=== PATIENT | male | born 1965 | race Two or more races ===

== ENCOUNTER 2024-07-13 07:53 | Outpatient (AMB) | payer OTHER, SELFPAY ==
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
[2024-07-13 08:24] VITALS: BMI 26.7
== END 2024-07-13 08:54 | disposition home or self-care (01) ==
LOC: HO.HOS 07:54
PROVIDERS: PCP Internal Medicine; Visit Provider Physician Assistant
DX: S46.002A Unspecified injury of muscle(s) and tendon(s) of the rotator cuff of left shoulder, initial encounter (principal)
CPT/HCPCS: 20610; 99204

== ENCOUNTER → 2024-07-13 07:56 | Outpatient (BNV) | payer OTHER, SELFPAY | PROVIDERS: Visit Provider Radiology Diagnostic Radiology | DX: M25.512 Pain in left shoulder (principal) | CPT/HCPCS: 73030 ==

== ENCOUNTER 2024-07-13 08:24 | Outpatient (REF) | payer OTHER, SELFPAY ==
--- NOTE | ~2024-07-13 | XR_ITS ---
EXAMINATION: XR SHOULDER 2 OR MORE VIEWS LEFT HISTORY: M25.519 - Pain in unspecified shoulder COMPARISON: There are no prior studies available for comparison. FINDINGS: Three views of the left shoulder are submitted. Osseous mineralization is normal. There is no fracture or dislocation. The glenohumeral joint is maintained. There is mild narrowing of the AC joint. The soft tissues are unremarkable. XR/XR shoulder LT min 2V IMPRESSION: Mild narrowing of the AC joint. Electronically signed by: Abisai Reina MD 07/13/2024 02:52 PM EDT
== END 2024-07-13 08:25 | disposition home or self-care (01) ==
LOC: HO.HOSX 08:24
PROVIDERS: Visit Provider Physician Assistant
DX: M25.512 Pain in left shoulder (principal); M75.102 Unspecified rotator cuff tear or rupture of left shoulder, not specified as traumatic; S46.002A Unspecified injury of muscle(s) and tendon(s) of the rotator cuff of left shoulder, initial encounter
CPT/HCPCS: 20610; 73030; J1010; J2003

== ENCOUNTER → 2024-07-27 17:45 | Outpatient (BNV) | payer OTHER, SELFPAY | PROVIDERS: PCP Nurse Practitioner Family; Visit Provider Radiology Diagnostic Radiology | DX: M75.122 Complete rotator cuff tear or rupture of left shoulder, not specified as traumatic (principal); M25.712 Osteophyte, left shoulder | CPT/HCPCS: 73221 ==

== ENCOUNTER 2024-07-27 17:46 | Outpatient (REF) | payer OTHER, SELFPAY ==
--- NOTE | ~2024-07-27 | MR_ITS ---
EXAMINATION: MR SHOULDER, LEFT CLINICAL INFORMATION: Pain with limited range of motion x6 months. No relief with PT. COMPARISON: None TECHNIQUE: Multiplanar multisequence MR imaging of the left shoulder was done without IV contrast. Examination performed on a 1.5 Serenity Siemens unit utilizing standard sequences. FINDINGS: Rotator Cuff and Biceps Tendon: Supraspinatus: There is a partial approximately 50% undersurface tear of the mid tendon measuring approximately 7 mm in transverse, by 5 mm in AP diameter (series 8, image 12; series 9, image 20). There is associated mild undersurface fraying of the mid fibers of the tendon with associated signal increase is consistent with tendinopathy. No complete tear or tendinous retraction. Normal muscle belly. Infraspinatus: Focal full-thickness tear of the anterior most tendon within the critical zone, measuring approximately 9 mm in transverse, by 4 mm in AP diameter (series 8, image 13; series 9, image 22). There is likely associated undersurface fraying of the tendon. There is associated increased signal of the distal tendon consistent with tendinopathy. No complete tear or tendinous retraction. Normal muscle belly. Subscapularis: Grossly intact, normal in signal, without evidence of tear. Normal muscle belly. Teres Minor: Appears intact and normal in signal. Normal muscle belly. Biceps Long Head: Normally located within the bicipital groove. There is mildly increased fluid in the tendon sheath. Tendon within the rotator interval appears normal. The anchor appears intact. AC Joint and Acromiohumeral Arch: There is moderate degenerative arthritis in the AC joint with joint capsular distention, predominantly superior surface spurring and small undersurface spurs, and mild periarticular edema. There is no significant supraspinatus outlet stenosis. There is a type I acromion without undersurface spurring. There is no loss of the subacromial space. Glenohumeral Joint and Labrum: Very mild degenerative arthritis of the glenohumeral joint with tiny undersurface spurs. No full-thickness cartilaginous defects or subchondral bone plate edema. Normal joint fluid. Irregular linear T2 signal in the superior labrum suggesting of superior labral tear. Remainder of the glenoid labrum appears intact. Osseous Structures: No additional abnormal signal or edema. No infiltrating abnormal signal. Spino-glenoid Notch: Normal. Quadrilateral Space: Normal. Other: The glenohumeral ligaments appear intact and grossly normal. No thickening. Moderate fluid in the subacromial/subdeltoid bursa, nonspecific in the setting of full-thickness rotator cuff tear. MR/MR shoulder LT wo con IMPRESSION: 1. Partial approximately 50% undersurface tear of the mid supraspinatus tendon. No full-thickness tear or tendinous retraction. 2. There is a full-thickness tear of the most anterior infraspinatus tendon with focal fluid gap. There is likely undersurface fraying of the majority of the tendon. No tendinous retraction. 3. Intact teres minor and intact subscapularis tendons. 4. Suspect superior labral tearing. 5. Minimal degenerative arthritis in the glenohumeral joint, and moderate spurring, predominantly superior surface, of the AC joint. Electronically signed by: Ronald Lopez MD 07/28/2024 01:39 PM EDT
--- OUTSIDE RECORDS SUMMARY | 2024-07-27 18:56 | XMS_ITS | Clinical Summary ---
Author Organization [facility] Address [address] [place] [address] Phone Care Team Providers Care Asbestos Shingle Roofer Name Role Phone Taylor Dseouza NP Primary Care Provider [phone] Allergies Active Allergy Reactions Criticality Noted Date Comments Atorvastatin Unknown 04/04/2024 Medications methocarbamoL (ROBAXIN) 750 mg tablet Take 1 tablet (750 mg total) by mouth 2 (two) times a day for 10 days. 20 each 04/04/2024 Active Surgical History Surgery Date Site/Laterality Comments BACK SURGERY Medical History Medical History Date Comments Hypertension Hyperlipidemia Social History Tobacco Use Types Packs/Day Years Used Date Smoking Tobacco: Never Smokeless Tobacco: Never Tobacco Cessation:Counseling Given: Not Answered Sex and Gender Information Value Date Recorded Sex Assigned at Male 04/04/2024 3:54 PM EST Legal Sex Male 2:44 PM EST Gender Identity Male 04/04/2024 3:54 PM EST Sexual Orientation Choose not to disclose 2023 3:54 PM EST Obstetrics History Last Filed Vital Signs Vital Sign Reading Time Taken Comments Blood Pressure 130/75 04/04/2024 2:54 PM EST Pulse 50 04/04/2024 2:54 PM EST Temperature 36.3 ??C (97.4 ??F) 04/04/2024 2:54 PM ES T Respiratory Rate 16 04/04/2024 2:54 PM EST Oxygen Saturation 100% 04/04/2024 2:54 PM EST Inhaled Oxygen Concentration - - Weight 82.6 kg (182 lb) 04/04/2024 2:54 PM EST Height 175.3 cm (5' 9 ) 04/04/2024 2:54 PM EST Body Mass Index 26.88 04/04/2024 2:54 PM EST Plan of Treatment Health Maintenance Due Date Last Done Comments Diabetes: Annual GFR (Glomerular Filtration Rate) 1964 Diabetes: Annual Foot Exam 02/20/1974 Diabetes: Annual Retina Eye Exam 02/20/1974 Hepatitis A Vaccines (1 of 2 - Risk 2-dose series) 02/20/1983 Pneumococcal Vaccine: 50+ Years (2 of 2 - PCV) 12/16/2015 12/15/2014 Zoster Vaccines (2 of 2) 05/15/2018 03/20/2018 COVID-19 Vaccine ( season) 2023 01/25/2023, 08/09/2021, 03/24/2021, Additional history exists Hepatitis B Vaccines (1 of 3 - Risk 3-dose series) 2024 RSV Immunization Adult Patients (1 - Risk 60-74 years 1-dose series) 2024 Cholesterol Screening (Lipid Panel) 04/04/2024 Colorectal Cancer Screening: Colonoscopy 04/04/2024 Depression Screening 04/04/2024 Diabetes: Annual Urine Albumin-Creatinine Ratio (uACR) 04/04/2024 HIV Screening 04/04/2024 Hepatitis C Screening 04/04/2024 Hypertension/CHF/CAD Annual BMP Blood Test 04/04/2024 Social Influencers of Health Screening 04/04/2024 Diabetes: Blood Sugar Control Test (HGBA1C) 05/01/2024 10/30/2023, 10/30/2023 DTaP,Tdap,and Td Vaccines (3 - Td or Tdap) 05/13/2031 05/13/2021, 06/07/2010 Pneumococcal Vaccine: Pediatrics (0 to 5 Years) and At-Risk Patients (6 to 64 Years) Aged Out 12/15/2014 No longer eligible based on patient's age to complete this topic Influenza Vaccine Completed 02/18/2024, , 03/02/2022, Additional history exists HIB Vaccines Aged Out No longer eligi ble based on patient's age to complete this topic HPV Vaccines Aged Out No longer eligi ble based on patient's age to complete this topic IPV Vaccines Aged Out No longer eligi ble based on patient's age to complete this topic MMR Vaccines Aged Out No longer eligi ble based on patient's age to complete this topic Meningococcal ACWY Vaccine Aged Out N o longer eligible based on patient's age to complete this topic Meningococcal B Vaccine Aged Out No l onger eligible based on patient's age to complete this topic RSV Immunization Patients Under 20 months Aged Out No longer eligible based on patient's age to complete this topic Varicella Vaccines Aged Out No longer eligible based on patient's age to complete this topic Insurance [employer] Care Teams Asbestos Shingle Roofer Relationship Specialty Start Date End Date Taylor Desouza NP [facility] [address] [place] [address] [phone] PCP - General Nurse Practitioner 04/04/24
--- OUTSIDE RECORDS SUMMARY | 2024-07-27 18:56 | XMS_ITS | Encounter Summary ---
Author Organization [facility] Address [address] [place] [address] Phone Care Team Providers Care Veneer Redrier Name Role Phone Taylor Desouza REGRINDER OPERATOR Primary Care Provider + Reason for Visit * Reason Comments Med Refill Encounter Details Date Type Department Care Team (Late st Contact Info) Description 06/08/2022 Refill [facility] [address] [address] Zaheer Nicolas DO [address] [place] [address] Social History Tobacco Use Types Packs/Day Years Used Date Smoking Tobacco: Never Alcohol Use Standard Drinks/Week Comments Yes 0 (1 standard drink = 0.6 oz pure alcohol) Alcoholic Drinks/day: Occasional social drink Sex and Gender Information Value Date Recorded Sex Assigned at Male 05/10/2023 4:06 PM EST Legal Sex Male 4:31 PM EST Gender Identity Male 05/10/2023 4:06 PM EST Sexual Orientation Not on file documented as of this encounter Plan of Treatment Upcoming Encounters Date Type Department Care Team (Late st Contact Info) Description 10/16/2024 1:30 PM EDT Office Visit [facility] [address] [address] Zaheer Nicolas DO [address] [facility] [address] [facility] [place] [address] documented as of this encounter Visit Diagnoses Not on filedocumented in this encounter Care Teams Veneer Redrier Relationship Specialty Start Date End Date Taylor Desouza NP [address] [place] [phone] PCP - General Nurse Practitioner 08/12/20 documented as of this encounter
--- OUTSIDE RECORDS SUMMARY | 2024-07-27 18:56 | XMS_ITS | Encounter Summary ---
Author Organization [facility] Address [address] [place] [address] Phone Care Team Providers Care Psych Rn Name Role Phone Taylor Desouza SPACE AND MISSILE OPERATIONS Primary Care Provider + Encounter Details Date Type Department Care Team (Late st Contact Info) Description 04/18/2023 Documentation Only [facility] [address] [place] [address] Zaheer Nicolas DO [address] [place] [address] Social History Tobacco Use Types [...] Visit [facility] [address] [place] [address] Zaheer Nicolas DO [address] [place] [address] documented as of this encounter Visit Diagnoses Not on filedocumented in this encounter Care Teams Psych Rn Relationship Specialty Start Date End Date Taylor Desouza NP [address] [place] [phone] PCP - General Nurse Practitioner 08/12/20 documented as of this encounter
--- OUTSIDE RECORDS SUMMARY | 2024-07-27 18:56 | XMS_ITS | Continuity of Care Document ---
Author Organization [facility] Address [address] [place] [address] Phone Care Team Providers Care Piece Meat Trimmer Name Role Phone Damir Orellana MD Unavailable [...] Providers Copied on Encounter [facility], [address], [place], [place], [id number], [place] tel:[phone] [facility] Main No Information 4 Reyna Reich. [address], [place], [place], [id number], [place]. tel:[phone] OFFICE/OUTPA TIENT VISIT, [facility], Critical access [facility] [address], [place], [place], [id number], tel:[phone] [facility] Main [facility] (chief complaint) Cardiovasc ular Review (chief complaint) Body mass index [BMI] 27.0-27.9, adultHistory of MD (myocardial infarction)MOSLEY (dyspnea on exertion)Curre nt smokerCurrent use of aspirin 3 Tish Gloria. [address], [place], [place], [id number]. tel:[phone] Referring Provider: Bryce Sahni, [facility] [address], [place], [address] . tel:[phone] [facility], Critical access hospital [address] [address], [place], [place], [id number], [place] tel:[phone] [facility] [place] IP No Information 3 Fred Moya. [facility] [address], [place], [place], [id number], [place]. tel:[phone] Referring Provider: Edy Fisher, [address] [place] [address] [address], [place], [address]. tel:[phone] [facility], Critical access [facility] [address], [place], [place], [id number], [place] tel:[phone] Dario [place] IP No Information 3 Fred Moya. [facility] [facility] [address], [place], [place], [address], . tel:[phone] Referring Provider: Edy Fisher, [address] [place] [address] [address], [place], [address]. tel:[phone] [facility], [address], [place], [place], [address], [place] tel:[phone] Dario Soha [place] IP No Information 3 Fred Moya. [address], [place], [place], [address], [place]. tel:[phone] Referring Provider: Edy Fisher, [address], [place], [address]. tel:[phone] [facility], [address], [place], [place], [address], [place] tel:[phone] Dario Soha [place] IP No Information 3 Med Miller. [address], [place], [place], [address], [place]. tel:[phone] Referring Provider: Bryce Sahni, [address], [place], [address] . tel:[phone] [facility] CONSULT [facility], [address], [place], [place], [id number], [place] tel:[phone] Dario Soha [place] IP No Information 3 Shayne Wu. [address], [place], [place], [id number], [place]. tel:[phone] Referring Provider: Edy Fisher, [address], [place], [address]. tel:[phone] Family History Family Member Type Diagnosis Age At Onset Father Problem Stroke (Cause Of ) Mother Problem Pancreatitis (Cause Of ) 62 Payers Payer name Insurance type Covered libertarian ID Authordarryla joel(s) [facility] [id number] Social History Type Description Quantity Date Captured [...]
--- OUTSIDE RECORDS SUMMARY | 2024-07-27 18:56 | XMS_ITS | Encounter Summary ---
Author Organization [facility] Address [address] [place] [address] Phone Care Team Providers Care Assistant Women'S Basketball Coach Name Role Phone Taylor Desouza SHOWROOM MANAGER Primary Care Provider + Encounter Details Date Type Department Care Team (Late st Contact Info) Description 09/03/2022 Documentation Only [facility] [address] [place] [address] Pedro Malagon MD [address] [place] [address] Social History Tobacco Use Types [...] Visit [facility] [address] [place] [address] Zaheer Nicolas DO [address] [place] [address] [place] [address] documented as of this encounter Visit Diagnoses Not on filedocumented in this encounter Care Teams Assistant Women'S Basketball Coach Relationship Specialty Start Date End Date Taylor Desouza NP [address] [place] [phone] PCP - General Nurse Practitioner 08/12/20 documented as of this encounter
--- OUTSIDE RECORDS SUMMARY | 2024-07-27 18:56 | XMS_ITS | Clinical Summary ---
Author Organization [facility], Address [address] [place] [address] [place] [address] Phone Care Team Providers Care Slate Roofer Name Role Phone Taylor Desouza NP Primary Care Provider + Allergies Active Allergy Reactions Criticality Noted Date Comments Atorvastatin 08/12/2019 Muscle aches Lisinopril 08/12/2019 Headache, nausea Medications esomeprazole (NexIUM) [address] capsule Take 40 mg by mouth 1 (one) time each day Active fluticasone (FLONASE) 50 MCG/ACT nasal spray Administer 1 spray into each nostril twice a day Active Ventolin HFA 108 (90 Base) MCG/ACT inhaler 03/21/20 21 Active ALPRAZolam (XANAX) 1 MG tablet Take 0.5 tablets by mouth every 8 (eight) hours if needed 01/10/20 21 Active tamsulosin (FLOMAX) 0.4 MG 24 hr capsule Take 0.4 mg by mouth 1 (one) time each day Active fenofibrate (TRICOR) 145 MG tablet TAKE 1 TABLET BY MOUTH EVERY DAY 90 tablet 3 10/29/19 24 Active metoprolol succinate XL (TOPROL XL) 50 MG 24 hr tablet Take 1 tablet (50 mg total) by mouth 1 (one) time each day Do not crush or chew. 90 tablet 3 01/15/20 24 Active venlafaxine XR (EFFEXOR-XR) 37.5 MG 24 hr capsule TAKE 2 CAPSULES BY MOUTH EVERY DAY 180 capsule 1 05/14/19 25 Active NIFEdipine XL (PROCARDIA XL) 30 MG 24 hr tabletIndicatio ns:Stage 3a chronic kidney disease (HCC),Type 2 diabetes mellitus with diabetic nephropathy (HCC),Hypertens sandra heart AND chronic kidney disease stage 3 (HCC) TAKE 1 TABLET BY MOUTH DAILY DO NOT CRUSH CHEW OR SPLIT 90 tablet 3 05/14/19 25 Active losartan (COZAAR) 100 MG tablet TAKE 1 TABLET BY MOUTH EVERY DAY 90 tablet 3 05/14/19 25 Active Jardiance 25 MG tabletIndicatio ns:Stage 3a chronic kidney disease (HCC),Type 2 diabetes mellitus with diabetic nephropathy (HCC),Hypertens sandra heart AND chronic kidney disease stage 3 (HCC) TAKE 1 TABLET BY MOUTH EVERY DAY 90 tablet 3 05/14/19 25 Active ergocalciferol 1.25 MG (90541 UT) capsuleIndicati ons:Hypertensiv e heart AND chronic kidney disease stage 3 (HCC),Stage 3a chronic kidney disease (HCC),Type 2 diabetes mellitus with diabetic nephropathy (HCC),Persisten t proteinuria TAKE 1 CAPSULE (50,000 UNITS TOTAL) BY MOUTH ONCE WEEKLY 12 capsule 07/11/19 25 Active ergocalciferol 1.25 MG (10666 UT) capsuleIndicati ons:Hypertensiv e heart AND chronic kidney disease stage 3 (HCC),Stage 3a chronic kidney disease (HCC),Type 2 diabetes mellitus with diabetic nephropathy (HCC),Persisten t proteinuria TAKE 1 CAPSULE (50,000 UNITS TOTAL) BY MOUTH ONCE WEEKLY 12 capsule 10/29/19 24 025 Discontinued Active Problems Problem Noted Date Diagnosed Date Type 2 diabetes mellitus 08/23/2020 Proteinuria 08/23/2020 Hypertensive heart AND chronic kidney disease st age 3 02/24/2020 Stage 3a chronic kidney disease 08/12/2019 Overview (04/25/2020): Update for Diagnosis Load Essential hypertension Hyperlipidemia Encounters Date Type Department Care Team Description 07/05/2024 Refill [facility], [address] [place] [address] Zaheer Nicolas DO 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); Stage 3a chronic kidney disease (HCC); Type 2 diabetes mellitus with diabetic nephropathy (HCC); Persistent proteinuria 05/10/2024 Refill [facility], [address] [place] [address] Zaheer Nicolas DO Stage 3a chronic kidney disease (HCC); Type 2 diabetes mellitus with diabetic nephropathy (HCC); 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) 05/01/2024 2:00 PM EST Office Visit [facility] [address] [place] [address] Zaheer Nicolas DO 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) (Primary Dx); Stage 3a chronic kidney disease (HCC); Type 2 diabetes mellitus with diabetic nephropathy (HCC) from Last 3 Months Immunizations Name Administration Dates Next Due Influenza Split High Dose Preservative Free IM 0 12/08/2014 Influenza, MDCK, PF, Quadrivalent 01/23/2020 Influenza, Quadrivalent, With Preservative 03/09 Influenza, Recombinant, Quadrivalent, Pf 022 Influenza, Unspecified 03/20/2018,03/13/2017 Moderna SARS-COV-2 03/24/2021 Pfizer SARS-COV-2 07/04/2020,06/13/2020 Pneumococcal Polysaccharide 12/15/2014 Shingrix 03/20/2018 Tdap 06/07/2010 Family History Medical History Relation Comments Diabetes Mother Hypertension Mother Kidney disease Mother Heart disease Sibling 1 sister Cancer Sibling 2 brother-prostate Relation Status Comments Mother Sibling 1 Sibling 2 Social History Tobacco Use Types Packs/Day Years [...] PM EST Sexual Orientation Not on file Last Filed Vital Signs Vital Sign Reading Time Taken Comments Blood Pressure 112/64 05/01/2024 1:46 PM EST Pulse 60 05/01/2024 1:46 PM EST Temperature - - Respiratory Rate - - Oxygen Saturation - - Inhaled Oxygen Concentration - - Weight 85.3 kg (188 lb) 03/02/2022 2:12 PM EST Height 172.7 cm (5' 8 ) 09/25/2018 12:00 PM EDT Body Mass Index 28.59 09/25/2018 12:00 PM EDT Plan of Treatment Upcoming Encounters Date Type Department Care Team (Late st Contact Info) Description 10/16/2024 1:30 PM EDT Office Visit [facility], [address] [place] [address] Zaheer Nicolas, [address] [place] [address] Health Maintenance Due Date Last Done Comments Colorectal Cancer Screening: Annual FOBT 02/20/2013 Colorectal Cancer Screening: Colonoscopy 02/20/2013 Colorectal Cancer Screening: Sigmoidoscopy 02/20/2013 Pneumococcal Vaccine: Pediatrics (0 to 5 Years) and At-Risk Patients (6 to 64 Years) (2 of 2 - PCV) 12/16/2015 12/15/2014 Diabetes: Ophthalmology Exam 06/14/2020 Diabetes: Pedal Pulse Checked 06/14/2020 Diabetes: Sensory Foot Exam 06/14/2020 Diabetes: Visual Foot Exam 06/14/2020 Diabetes: Hemoglobin A1C 01/30/2024 024, 04/30/2023, 09/06/2022, Additional history exists Influenza Vaccine Completed 02/18/2024, , 01/23/2020, Additional history exists Hepatitis B Vaccine Aged Out No longe r eligible based on patient's age to complete this topic Procedures Procedure Name Priority Date/Time Associated Diagnosis Comments HEMOGLOBIN A1C Routine 10/30/2023 7:51 AM EDT from Last 3 Months or Most Recently Relevant to Health Maintenance Results * (ABNORMAL) Hemoglobin A1c (10/30/2023 7:51 AM EDT) Hemoglobin A1C 6.7(H) 4.8 - 5.6 % [facility] Comment: ? Prediabetes: 5.7 - 6.4 ? Diabetes: >6.4 ? Glycemic control for adults with diabetes: <7.0 10/30/2023 7:51 AM EDT 10/30/2023 us Zaheer Nicolas DO LAB BLOOD ORDERABLES Final Resu lt [facility] [address] [place] [address] from Last 3 Months or Most Recently Relevant to Health Maintenance Insurance [facility] [employer] DUAL SNP ([id number]) [place] [id number] Care Teams Slate Roofer Relationship Specialty Start Date End Date Taylor Desouza NP [address] [place] [phone] PCP - General Nurse Practitioner 08/12/20
--- OUTSIDE RECORDS SUMMARY | 2024-07-27 18:56 | XMS_ITS | Encounter Summary ---
Author Organization [facility] Address [address] [place] [address] Phone Care Team Providers Care Slat Grader Name Role Phone Taylor Desouza PARTS CLERK Primary Care Provider + Encounter Details Date Type Department Care Team (Late st Contact Info) Description 09/03/2022 Documentation Only [facility] [address] [place] [address] Zaheer Nicolas DO [address] [facility] [address] [place] [address] Social History Tobacco Use Types [...] Visit [facility] [address] [place] [address] Zaheer Nicolas DO [address] [facility] [address] [place] [address] documented as of this encounter Visit Diagnoses Not on filedocumented in this encounter Care Teams Slat Grader Relationship Specialty Start Date End Date Taylor Desouza NP [address] [place] [phone] PCP - General Nurse Practitioner 08/12/20 documented as of this encounter
--- OUTSIDE RECORDS SUMMARY | 2024-07-27 18:56 | XMS_ITS | Encounter Summary ---
Author Organization [facility] Address [address] [place] [address] Phone Care Team Providers Care Revenue Collector Name Role Phone Taylor Desouza CLAY MAKER Primary Care Provider + Encounter Details Date Type Department Care Team (Late st Contact Info) Description 10/13/2023 Documentation Only [facility] [address] [place] [address] Zaheer Nicolas DO [address] [facility] [place] [address] Social History Tobacco Use Types [...] Visit [facility] [address] [place] [address] Zaheer Nicolas DO [address] [facility] [place] [address] documented as of this encounter Visit Diagnoses Not on filedocumented in this encounter Care Teams Revenue Collector Relationship Specialty Start Date End Date Taylor Desouza NP [address] [place] [phone] PCP - General Nurse Practitioner 08/12/20 documented as of this encounter
--- OUTSIDE RECORDS SUMMARY | 2024-07-27 18:56 | XMS_ITS | Continuity of Care Document ---
Author Organization [facility] Address [address] [place] [address] Phone Care Team Providers Care Senior J2Ee Developer Name Role Phone Elijah Ervin MD Unavailable [...] Diagnoses Date Provider Providers Copied on [facility]counter [facility] [address], [place], [id number] , [place] tel: [phone] [facility] Medical No Information 2 Arcadio Nava. [address] [place], [id number] , [place]. tel: [phone] [facility], [address] [place] [address], [id number] , [place] tel: [phone] [facility] Medical No Information 1 Tietze Bambi. [address] [facility], [place], [address], [place]. tel: [phone] [facility], [address] [place] [address], [id number] , [place] tel: [phone] 03 [facility] Medical No Information 1 Tietze Bambi. [address], [place], [address], [place]. tel: [phone] [facility], [address] [place] [address], [id number] , [place] tel: [phone] 03 [facility] Medical No Information 1 Tietze Bambi. [address] [facility], [place], [address], [place]. tel: [phone] OFFICE/OUTPA TIENT VISIT, [facility], [address] [place] [address], [id number] , [place] tel: [phone] 03 [facility] Medical diabetes (chief complaint)hyp ertension (chief complaint)OTH ER (chief complaint) Type 2 diabetes mellitus with hyperglycemia, without long-term current use of insulinEssential hypertensionMixed hyperlipidemiaScre ening, anemia, deficiency, ironObesity (BMI 30.0-34.9) Apr-0 [address]. [address], [place], [address], [place]. tel: [phone] OFFICE/OUTPA TIENT VISIT, [facility], [facility], [address], [place], [id number] , [place] tel: [phone] 03 [facility] Medical Dizziness (chief complaint) DizzinessType 2 diabetes mellitus with hyperglycemia, without long-term current use of insulinDehydration after exertionEssential hypertension Sep- 0 Means Tal. [address], [id number] , [place]. tel: [phone] OFFICE/OUTPA TIENT VISIT, [facility], [facility], [facility] [address], [place], [id number] , [place] tel: [phone] 03 [facility] Medical Follow Up of Physical (chief complaint) Essential hypertensionType 2 diabetes mellitus with hyperglycemia, without long-term current use of insulinMixed hyperlipidemia Jun- 0 Means Tal. [address], [id number] , [place]. tel: [phone] PREV VISIT, [facility], AGE 40-64 [facility], [facility], [address], [place], [id number] , [place] tel: [phone] 03 [facility] Medical Physical (chief complaint)LAB S (chief complaint) Routine history and physical examination of adultEssential hypertension 0 Means Tal. [address] [facility] [address], [place], [place], [id number] , [place]. tel: [phone] OFFICE/OUTPA TIENT VISIT, [facility], [facility], [facility] [address], [place], [id number] , [place] tel: [phone] 03 [facility] Medical Follow Up of hypertension (chief complaint) Essential hypertension 9 Means Tal. [address] [address], [place], [place], [id number] , [place]. tel: [phone] OFFICE/OUTPA TIENT VISIT, [facility], [facility], [address], [place], [id number] , [place] tel: [phone] 03 [facility] Medical hypertension (chief complaint) Essential hypertension 1 9 Aline Parada. [address] [facility] [address], [place], [place], [id number] , [place]. tel: [phone] [facility]., [address], [place], [id number] , [place] tel: [phone] 03 [facility] Dental No Information 0 9 Ema- English Kicha. [address], [place], [address], [place]. tel: [phone] [facility], [address], [place], [id number] , [place] tel: [phone] 03 [facility] Dental No Information 0 2 9 Ema- English Kicha. [address], [place], [address], [place]. tel: [phone] Family History Family Member Type Diagnosis Age [...] II Payers Payer name Insurance type Covered alliance party ID Authoriza tion(s) No Information Social History [...] limit coffee, tea, alcohol, and soda containing caffeine???these increase urination, causing you to lose water [...] about risk of high BP including stroke, PR, chest pain, blurry vis Related to Essential [...] lastly, keep an up-to-date list of all diqs-[id number] and prescribed medications. Take this list with you to all your healthcare provider appointments. Related to Routine history and physical examination of adult discuss normal range of BP Relat ed to Essential hypertension educated about risk of high BP including stroke, PR, chest pain, blurry vis Related to Essential [...] about risk of high BP including stroke, PR, chest pain, blurry vis Related to Essential hypertension recommend to go to E [facility] if not feeling well Related to Essential hypertension take medication as prescribed Re lated to Essential hypertension should take 1500mg s odium a day but no more than 2400mg Related to Essential hypertension educated about risk of high BP including stroke, PR, chest pain, blurry vis Related to Essential [...] appt Related to Essential hypertension aerobic exercise [facility] for 40 min, 3-4 times a week Related to Essential hypertension discuss normal range of BP Relat ed to Essential hypertension Assessments Type Assessment Date No Information Patient Care Teams Name Effective Dates (start - stop) Status Members No Information
--- OUTSIDE RECORDS SUMMARY | 2024-07-27 18:56 | XMS_ITS | Encounter Summary ---
Author Organization [facility] Address [address] [place] [address] Phone Care Team Providers Care Dental Insurance Coordinator Name Role Phone Taylor Desouza SOLE LEVELING MACHINE OPERATOR Primary Care Provider + Encounter Details Date Type Department Care Team (Late st Contact Info) Description 11/14/2022 Documentation Only [facility] [address] [place] [address] Zaheer Nicolas DO [address] [facility] [place] [address] Social History Tobacco Use Types [...] Visit [facility] [address] [place] [address] Zaheer Nicolas DO [address] [facility] [place] [address] documented as of this encounter Visit Diagnoses Not on filedocumented in this encounter Care Teams Dental Insurance Coordinator Relationship Specialty Start Date End Date Taylor Desouza NP [address] [place] [phone] PCP - General Nurse Practitioner 08/12/20 documented as of this encounter
--- OUTSIDE RECORDS SUMMARY | 2024-07-27 18:57 | XMS_ITS | Encounter Summary ---
Author Organization [facility] Address [address] [place] [address] Phone Care Team Providers Care Live Study Manager Name Role Phone Taylor Desouza AGRICULTURE MANAGER Primary Care Provider + Reason for Visit * Reason Comments Med Refill Encounter Details Date Type Department Care Team (Late st Contact Info) Description 12/28/2020 Refill [facility] [address] [place] [address] Zaheer Nicolas, [address] [facility] [address] [place] [address] Social History Tobacco Use Types [...] Office Visit [facility] [address] [place] [address] Zaheer Nicolas DO [address] [place] [address] documented as of this encounter Visit Diagnoses Not on filedocumented in this encounter Care Teams Live Study Manager Relationship Specialty Start Date End Date Taylor Desouza NP [address] [place] [phone] PCP - General Nurse Practitioner 08/12/20 documented as of this encounter
== END 2024-07-27 17:47 | disposition home or self-care (01) ==
LOC: HO.MRI 17:46
PROVIDERS: PCP Nurse Practitioner Family; Visit Provider Physician Assistant
DX: S46.002A Unspecified injury of muscle(s) and tendon(s) of the rotator cuff of left shoulder, initial encounter (principal); M75.102 Unspecified rotator cuff tear or rupture of left shoulder, not specified as traumatic
CPT/HCPCS: 73221

== ENCOUNTER 2024-09-04 11:14 | Outpatient (AMB) | payer OTHER, SELFPAY ==
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
--- OUTSIDE RECORDS SUMMARY | 2024-09-04 11:38 | XMS_ITS | Continuity of Care Document ---
Author Organization [facility] Address [address] [place] [address] Phone Care Team Providers Care Boss Miner Name Role Phone Damir Orellana MD Unavailable [...] Providers Copied on Encounter [facility], [address], [place], [place], [id number], [place] tel:[phone] [facility] Main No Information 4 Reyna Reich. [address], [place], [place], [id number], [place]. tel:[phone] OFFICE/OUTPA TIENT VISIT, [facility], [facility] [address], [place], [place], [address], tel:[phone] [facility] Main POST [facility]P (chief complaint) Cardiovasc ular Review (chief complaint) Body mass index [BMI] 27.0-27.9, adultHistory of IA (myocardial infarction)[place] (dyspnea on exertion)Curre nt smokerCurrent use of aspirin 3 Tish Gloria. [address], [place], [place], [id number]. tel:[phone] Referring Provider: Bryce Sahni, [facility] [facility] [address], [place], [address] . tel:[phone] [facility], [facility] [address] [address], [place], [place], [id number], [place] tel:[phone] [facility] [place] IP No Information 3 Fred Moya. [facility] [address], [place], [place], [id number], [place]. tel:[phone] Referring Provider: Edy Fisher, [address] [place] [address] [address], [place], [address]. tel:[phone] [facility], [facility] [address], [place], [place], [id number], [place] tel:[phone] [facility] [place] IP No Information 3 Fred Moya. [facility] [address], [place], [place], [address], . tel:[phone] Referring Provider: Edy Fisher, [address] [place] [address] [address], [place], [address]. tel:[phone] [facility], [address], [place], [place], [id number], [place] tel:[phone] [facility] [place] [place] IP No Information 3 Fred Moya. [address], [place], [place], [id number], [place]. tel:[phone] Referring Provider: Edy Fisher, [address], [place], [address]. tel:[phone] [facility], [address], [place], [place], [id number], [place] tel:[phone] Dario [place] [place] IP No Information 3 Med Miller. [address], [place], [place], [address], [place]. tel:[phone] Referring Provider: Bryce Sahni, [address], [place], [address] . tel:[phone] [facility]PITAL CONSULT [facility], [address], [place], [place], [id number], [place] tel:[phone] Dario S[facility] [place] IP No Information 3 Shayne Wu. [address], [place], [place], [address], [place]. tel:[phone] Referring Provider: Edy Fisher, [address], [place], [address]. tel:[phone] Family History Family Member Type Diagnosis Age At Onset Father Problem Stroke (Cause Of ) Mother Problem Pancreatitis (Cause Of ) 62 Payers Payer name Insurance type Covered libertarian ID Authordarryla joel(s) [facility] [id number] Social History Type Description Quantity Date Captured [...] Information Instructions Date Instruction Additional Infor mark Dietary management e ducation, guidance, and counseling Related to Body mass index [BMI] 27.0-27.9, adult Discussed Medication Compliance Assessments Type Assessment Date No Information Patient Care Teams Name Effective Dates (start - stop) Status Members No Information
--- OUTSIDE RECORDS SUMMARY | 2024-09-04 11:38 | XMS_ITS | Encounter Summary ---
Author Organization [facility] Address [address] [place] [address] Phone Care Team Providers Care Assistant Controller Name Role Phone Taylor Desouza CHARGING BOARD OPERATOR Primary Care Provider + Encounter Details Date Type Department Care Team (Late st Contact Info) Description 09/03/2022 Documentation Only [facility] [address] [place] [address] Pedro Malagon MD [address] [facility] [place] [address] Social History Tobacco Use Types [...] Visit [facility] [address] [place] [address] Zaheer Nicolas DO [address] [place] [address] [place] [address] documented as of this encounter Visit Diagnoses Not on filedocumented in this encounter Care Teams Assistant Controller Relationship Specialty Start Date End Date Taylor Desouza NP [address] [place] [phone] PCP - General Nurse Practitioner 08/12/20 documented as of this encounter
--- OUTSIDE RECORDS SUMMARY | 2024-09-04 11:38 | XMS_ITS | Encounter Summary ---
Author Organization [facility] Address [address] [place] [address] Phone Care Team Providers Care Dynamo Repairer Name Role Phone Taylor Desouza LEVEL VIAL INSPECTOR Primary Care Provider + Encounter Details Date Type Department Care Team (Late st Contact Info) Description 10/13/2023 Documentation Only [facility] [address] [place] [address] Zaheer Nicolas DO [address] [place] [address] Social History Tobacco Use Types [...] Visit [facility] [address] [place] [address] Zaheer Nicolas DO [address] [place] [address] documented as of this encounter Visit Diagnoses Not on filedocumented in this encounter Care Teams Dynamo Repairer Relationship Specialty Start Date End Date Taylor Desouza NP [address] [place] [phone] PCP - General Nurse Practitioner 08/12/20 documented as of this encounter
--- OUTSIDE RECORDS SUMMARY | 2024-09-04 11:38 | XMS_ITS | Continuity of Care Document ---
Author Organization [employer] Address [address] [place] [address] Phone Care Team Providers Care Drilling Contractor Name Role Phone Elijah Ervin MD Unavailable [...] Diagnoses Date Provider Providers Copied on Encounter [facility] [address] [place], [place], [id number] , [place] tel: [phone] 03 [facility] Medical No Information 2 Arcadio Nava. [address] [place], [place], [id number] , [place]. tel: [phone] [facility], [address] [place] [address], [id number] , [place] tel: [phone] 03 [facility] Medical No Information 1 Tietze Bambi. [address] [facility], [place], [address], [place]. tel: [phone] [facility], [address] [place] [address], [id number] , [place] tel: [phone] 03 [facility] Medical No Information 1 Tietze Bambi. [address], [place], [address], [place]. tel: [phone] [facility], [address] [place] [address], [id number] , [place] tel: [phone] 03 [facility] Medical No Information 1 Tietze Bambi. [address] [facility], [place], [address], [place]. tel: [phone] OFFICE/OUTPA TIENT VISIT, [facility], [address] [place] [address], [id number] , [place] tel: [phone] 03 [facility] Medical diabetes (chief complaint)hyp ertension (chief complaint)OTH ER (chief complaint) Type 2 diabetes mellitus with hyperglycemia, without long-term current use of insulinEssential hypertensionMixed hyperlipidemiaScre ening, anemia, deficiency, ironObesity (BMI 30.0-34.9) Apr-0 1 [place]. [address], [address], [place], [address], [place]. tel: [phone] OFFICE/OUTPA TIENT VISIT, [facility], [facility], [address], [place], [id number] , [place] tel: [phone] 03 [facility] Medical Dizziness (chief complaint) DizzinessType 2 diabetes mellitus with hyperglycemia, without long-term current use of insulinDehydration after exertionEssential hypertension Sep- 0 Means Tal. [address], [id number] , [place]. tel: [phone] OFFICE/OUTPA TIENT VISIT, [facility], [facility], [facility] [address] [place], [id number] , [place] tel: [phone] 03 [facility] Medical Follow Up of Physical (chief complaint) Essential hypertensionType 2 diabetes mellitus with hyperglycemia, without long-term current use of insulinMixed hyperlipidemia Jun- 0 Means Tal. [address], [id number] , [place]. tel: [phone] PREV VISIT, [facility], AGE 40-64 [facility], [facility], [address], [place], [id number] , [place] tel: [phone] 03 [facility] Medical Physical (chief complaint)LAB S (chief complaint) Routine history and physical examination of adultEssential hypertension 0 Means Tal. [address] [facility] [address], [place], [place], [id number] , [place]. tel: [phone] OFFICE/OUTPA TIENT VISIT, [facility], [facility], [facility] [address] [place], [id number] , [place] tel: [phone] 03 [facility] Medical Follow Up of hypertension (chief complaint) Essential hypertension 9 Means Tal. [address] [address], [place], [place], [id number] , [place]. tel: [phone] OFFICE/OUTPA TIENT VISIT, [facility], [facility], [address], [place], [id number] , [place] tel: [phone] 03 [facility] Medical hypertension (chief complaint) Essential hypertension 1 9 Aline Parada. [address] [facility] [address], [place], [place], [id number] , [place]. tel: [phone] [facility]., [address], [place], [id number] , [place] tel: [phone] 03 [facility] Dental No Information 0 9 Ema- [place]. [address], [place], [address], [place]. tel: [phone] [facility], [address], [place], [id number] , [place] tel: [phone] 03 [facility] Dental No Information 0 2 9 E[place]- [place]. [address], [place], [address], [place]. tel: [phone] Family History Family Member Type Diagnosis Age [...] about risk of high BP including stroke, ME, chest pain, blurry vis Related to Essential [...] lastly, keep an up-to-date list of all [id number] and prescribed medications. Take this list with you to all your healthcare provider appointments. Related to Routine history and physical examination of adult discuss normal range of BP Relat ed to Essential hypertension educated about risk of high BP including stroke, ME, chest pain, blurry vis Related to Essential [...] about risk of high BP including stroke, ME, chest pain, blurry vis Related to Essential hypertension recommend to go to E R if not feeling well Related to Essential hypertension take medication as prescribed Re lated to Essential hypertension should take 1500mg s odium a day but no more than 2400mg Related to Essential hypertension educated about risk of high BP including stroke, ME, chest pain, blurry vis Related to Essential [...] appt Related to Essential hypertension aerobic exercise [facility] for 40 min, 3-4 times a week Related to Essential hypertension discuss normal range of BP Relat ed to Essential hypertension Assessments Type Assessment Date No Information Patient Care Teams Name Effective Dates (start - stop) Status Members No Information
--- OUTSIDE RECORDS SUMMARY | 2024-09-04 11:38 | XMS_ITS | Encounter Summary ---
Author Organization [facility] Address [address] [place] [address] Phone Care Team Providers Care Timber Surveyor Name Role Phone Taylor Desouza CLAIMS ADJUSTOR Primary Care Provider + Encounter Details Date Type Department Care Team (Late st Contact Info) Description 09/03/2022 Documentation Only [facility] [address] [facility] [place] [address] Zaheer Nicolas DO [address] [facility] [address] [place] [address] Social History Tobacco Use Types [...] Visit [facility] [address] [facility] [address] Zaheer Nicolas DO [address] [facility] [address] [place] [address] documented as of this encounter Visit Diagnoses Not on filedocumented in this encounter Care Teams Timber Surveyor Relationship Specialty Start Date End Date Taylor Desouza NP [address] [place] [phone] PCP - General Nurse Practitioner 08/12/20 documented as of this encounter
--- OUTSIDE RECORDS SUMMARY | 2024-09-04 11:38 | XMS_ITS | Encounter Summary ---
Author Organization [facility] Address [address] [place] [address] Phone Care Team Providers Care Knit Goods Press Hand Name Role Phone Taylor Desouza BOOK SORTER Primary Care Provider + Reason for Visit * Reason Comments Med Refill Encounter Details Date Type Department Care Team (Late st Contact Info) Description 12/28/2020 Refill [facility] [address] [place] [address] Zaheer Nicolas, [address] [facility] [place] [address] Social History Tobacco Use Types [...] Office Visit [facility] [address] [address] Zaheer Nicolas DO [address] [facility] [place] [address] documented as of this encounter Visit Diagnoses Not on filedocumented in this encounter Care Teams Knit Goods Press Hand Relationship Specialty Start Date End Date Taylor Desouza NP [address] [place] [phone] PCP - General Nurse Practitioner 08/12/20 documented as of this encounter
--- OUTSIDE RECORDS SUMMARY | 2024-09-04 11:38 | XMS_ITS | Clinical Summary ---
Author Organization [facility] Address [address] [place] [address] [place] [address] Phone Care Team Providers Care Process Environmental Technician Name Role Phone Taylor Desouza NP Primary [...] Ventolin HFA 108 (90 Base) MCG/ACT inhaler 1 Active ALPRAZolam (XANAX) 1 MG tablet Take 0.5 tablets by mouth every 8 (eight) hours if needed 1 Active tamsulosin (FLOMAX) 0.4 MG 24 hr capsule Take 0.4 mg by mouth 1 (one) time each day Active fenofibrate (TRICOR) 145 MG tablet TAKE 1 TABLET BY MOUTH EVERY DAY 90 tablet 3 4 Active metoprolol succinate XL (TOPROL XL) 50 MG 24 hr tablet Take 1 tablet (50 mg total) by mouth 1 (one) time each day Do not crush or chew. 90 tablet 3 4 Active venlafaxine XR (EFFEXOR-XR) 37.5 MG 24 hr capsule TAKE 2 CAPSULES BY MOUTH EVERY DAY 180 capsule 1 5 Active NIFEdipine XL (PROCARDIA XL) 30 MG 24 hr tabletIndication s:Stage 3a chronic kidney disease (HCC),Type 2 diabetes mellitus with diabetic nephropathy (HCC),Hypertensi ve heart AND chronic kidney disease stage 3 (HCC) TAKE 1 TABLET BY MOUTH DAILY DO NOT CRUSH CHEW OR SPLIT 90 tablet 3 5 Active losartan (COZAAR) 100 MG tablet TAKE 1 TABLET BY MOUTH EVERY DAY 90 tablet 3 5 Active Jardiance 25 MG tabletIndication s:Stage 3a chronic kidney disease (HCC),Type 2 diabetes mellitus with diabetic nephropathy (HCC),Hypertensi ve heart AND chronic kidney disease stage 3 (HCC) TAKE 1 TABLET BY MOUTH EVERY DAY 90 tablet 3 5 Active ergocalciferol 1.25 MG (97523 UT) capsuleIndicatio ns: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),Stage 3a chronic kidney disease (HCC),Type 2 diabetes mellitus with diabetic nephropathy (HCC),Persistent proteinuria TAKE 1 CAPSULE (50,000 UNITS TOTAL) BY MOUTH ONCE WEEKLY 12 capsule 5 Active Active Problems Problem Noted Date Diagnosed Date Type 2 diabetes mellitus 08/23/2020 Proteinuria 08/23/2020 Hypertensive heart AND chronic kidney disease st age 3 02/24/2020 Stage 3a chronic kidney disease 08/12/2019 Overview (04/25/2020): Update for Diagnosis Load Essential hypertension Hyperlipidemia Encounters Date Type Department Care Team Description 07/05/2024 Refill [facility] [address] [place] [address] Zaheer Nicolas DO 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); Stage 3a chronic kidney disease (HCC); Type 2 diabetes mellitus with diabetic nephropathy (HCC); Persistent proteinuria from Last 3 Months Immunizations Immunization Administration Dates Next Due Influenza Split High [...] Visit [facility] [address] [place] [address] Zaheer Nicolas DO [address] [place] [address] Health Maintenance Due Date Last Done Comments Colorectal Cancer Screening: Annual FOBT 02/20/2013 Colorectal Cancer Screening: Colonoscopy 02/20/2013 Colorectal Cancer Screening: Sigmoidoscopy 02/20/2013 Pneumococcal Vaccine: 50+ Years (2 of 2 - PCV) 12/16/2015 12/15/2014 Diabetes: Ophthalmology Exam 06/14/2020 Diabetes: Pedal Pulse Checked 06/14/2020 Diabetes: Sensory Foot Exam 06/14/2020 Diabetes: Visual Foot Exam 06/14/2020 Diabetes: Hemoglobin A1C 01/30/2024 024, 04/30/2023, 09/06/2022, Additional history exists Pneumococcal Vaccine: Peds (0 to 5 Years) and At-Risk Patients (6 to 49 Years) Discontinued 12/15/2014 Influenza Vaccine Completed 02/18/2024, , 01/23/2020, Additional [...] Hemoglobin A1C 6.7(H) 4.8 - 5.6 % [facility] Comment: ? Prediabetes: 5.7 - 6.4 ? Diabetes: >6.4 ? Glycemic control for adults with diabetes: <7.0 10/30/2023 7:51 AM EDT 10/30/2023 Zaheer Nicolas DO LAB BLOOD ORDERABLES Final Resu lt [employer] Rosalba [address] [place] [phone] from Last 3 Months or Most Recently Relevant to Health Maintenance Insurance [facility] One Care Dual SNP ([id number]) Care Teams Process Environmental Technician Relationship Specialty Start Date End Date Taylor Desouza NP [address] [place] [phone] PCP - General Nurse Practitioner 08/12/20
--- OUTSIDE RECORDS SUMMARY | 2024-09-04 11:38 | XMS_ITS | Encounter Summary ---
Author Organization [facility] Address [address] [place] [address] Phone Care Team Providers Care Merchandise Adjustment Clerk Name Role Phone Taylor Desouza FLOUR BLENDER Primary Care Provider + Encounter Details Date Type Department Care Team (Late st Contact Info) Description 04/18/2023 Documentation Only [facility] [address] [place] [address] Zaheer Nicolas DO [address] [place] [address] Social History Tobacco Use Types [...] [facility] [address] [place] [address] Zaheer Nicolas DO [address] [place] [address] documented as of this encounter Visit Diagnoses Not on filedocumented in this encounter Care Teams Merchandise Adjustment Clerk Relationship Specialty Start Date End Date Taylor Desouza NP [address] [place] [phone] PCP - General Nurse Practitioner 08/12/20 documented as of this encounter
--- OUTSIDE RECORDS SUMMARY | 2024-09-04 11:38 | XMS_ITS | Clinical Summary ---
Author Organization [facility] Address [address] [place] [address] Phone Care Team Providers Care Animal Sitter Name Role Phone Taylor Desouza NP Primary Care Provider [phone] Allergies Active Allergy Reactions Criticality Noted Date [...] this topic Insurance AUTO GENERIC Care Teams Animal Sitter Relationship Specialty Start Date End Date Taylor Desouza NP [facility] [address] [place] [phone] PCP - General Nurse Practitioner 04/04/24
--- OUTSIDE RECORDS SUMMARY | 2024-09-04 11:38 | XMS_ITS | Encounter Summary ---
Author Organization [facility] Address [address] [place] [address] Phone Care Team Providers Care Sandal Parts Assembler Name Role Phone Taylor Desouza SOUND ENGINEERING TECHNICIAN Primary Care Provider + Encounter Details Date Type Department Care Team (Late st Contact Info) Description 11/14/2022 Documentation Only [facility] [address] [place] [address] Zaheer Nicolas DO [address] [facility] [place] [address] Social History Tobacco Use Types [...] Visit [facility] [address] [place] [address] Zaheer Nicolas DO [address] [facility] [place] [address] documented as of this encounter Visit Diagnoses Not on filedocumented in this encounter Care Teams Sandal Parts Assembler Relationship Specialty Start Date End Date Taylor Desouza NP [address] [place] [phone] PCP - General Nurse Practitioner 08/12/20 documented as of this encounter
--- OUTSIDE RECORDS SUMMARY | 2024-09-04 11:38 | XMS_ITS | Encounter Summary ---
Author Organization [facility] Address [address] [place] [address] Phone Care Team Providers Care Line Builder Name Role Phone Taylor Desouza BALANCE TRUING INSPECTOR Primary Care Provider + Reason for Visit * Reason Comments Med Refill Encounter Details Date Type Department Care Team (Late st Contact Info) Description 06/08/2022 Refill [facility] [address] [place] [address] Zaheer Nicolas DO [address] [facility] [place] [address] Social History Tobacco Use Types [...] Visit [facility] [address] [place] [address] Zaheer Nicolas DO [address] [facility] [address] [place] [address] documented as of this encounter Visit Diagnoses Not on filedocumented in this encounter Care Teams Line Builder Relationship Specialty Start Date End Date Taylor Desouza NP [address] [place] [phone] PCP - General Nurse Practitioner 08/12/20 documented as of this encounter
== END 2024-09-04 11:55 | disposition home or self-care (01) ==
LOC: HO.HOS 11:15
PROVIDERS: PCP Nurse Practitioner Family; Visit Provider Orthopaedic Surgery
DX: S46.012A Strain of muscle(s) and tendon(s) of the rotator cuff of left shoulder, initial encounter (principal)
CPT/HCPCS: 99214

== ENCOUNTER → 2024-09-04 11:14 | Outpatient (BNVA) | payer OTHER, SELFPAY | PROVIDERS: PCP Nurse Practitioner Family; Visit Provider Orthopaedic Surgery | DX: S46.012A Strain of muscle(s) and tendon(s) of the rotator cuff of left shoulder, initial encounter (principal); V89.2XXA Person injured in unspecified motor-vehicle accident, traffic, initial encounter; Y93.9 Activity, unspecified; Y92.9 Unspecified place or not applicable; Y99.9 Unspecified external cause status; Z71.2 Person consulting for explanation of examination or test findings | CPT/HCPCS: 99212 ==

== ENCOUNTER 2024-10-21 | Outpatient (REF) | payer OTHER, SELFPAY ==
--- OUTSIDE RECORDS SUMMARY | 2022-01-18 10:20 | XMS_ITS | Continuity of Care Document ---
Author Organization [facility] Address [address] [place] [address] Phone Care Team Providers Care Solderer Furnace Name Role Phone Elijah Ervin MD Unavailable Unavailable Allergies, Adverse Reactions, Alerts Substance Reaction Status Criticality No Known Allergies Active No Inform ation Medications Medication Instructions Dosage Effective Dates (start - stop) Status Comments lisinopril 40 mg tablet take 1 tablet by oral route every day 40 MG - Active atorvastatin 10 mg tablet take 1 tablet by oral route every day 10 MG - Active metFORMIN HCl 500 MG Oral Tablet TAKE 1 TABLET BY MOUTH TWICE DAILY WITH BIGGEST MEALS OF THE DAY. 1 tablet - Active Lisinopril 40 mg Tab 1 times per day - Act sandra Atorvastatin 10 mg Tab 1 times per day - Active Metformin 500 mg Tab 1 times per day - Act sandra Procedures Procedure Date OFFICE/OUTPATIENT VISIT, EST Clonidine hydrochloride OFFICE/OUTPATIENT VISIT, EST OFFICE/OUTPATIENT VISIT, EST PREV VISIT, EST, AGE 40-64 ROUTINE VENIPUNCTURE COMPREHEN METABOLIC PANEL COMPLETE CBC W/AUTO DIFF WBC GLYCOSYLATED HEMOGLOBIN TEST LIPID PANEL ASSAY OF FREE THYROXINE ASSAY THYROID STIM HORMONE ASSAY OF PSA, TOTAL OFFICE/OUTPATIENT VISIT, EST OFFICE/OUTPATIENT VISIT, NEW PT SEEN NO CHARGE Dental panoramic film Periapical first film Periapical ea add Periapical ea add Comprehensve oral evaluation Advance Directives Directive Yes / No Effective Date File Name No Information Encounters Encounter Description Practice Location Reason(s) For Visit Diagnoses Date Provider Providers [facility] [address] [place] [address], [place], [id number] , [place] tel: [phone] [facility] Medical No Information 2 Arcadio Nava. [address], [id number] , [place]. tel: [phone] [facility], [address] [place] [address], [id number] , [place] tel: [phone] [facility] Medical No Information 1 Tietze Bambi. [address] [facility], [place], [address], [place]. tel: [phone] [facility], [address] [place] [address], [id number] , [place] tel: [phone] 03 [facility] Medical No Information 1 Tietze Bambi. [address], [place], [address], [place]. tel: [phone] [facility], [address] [place] [address], [id number] , [place] tel: [phone] 03 [facility] Medical No Information 1 Tietze Bambi. [address] [facility], [place], [address], [place]. tel: [phone] [facility], [address] [place] [address], [id number] , [place] tel: [phone] 03 [facility] Medical diabetes (chief complaint)hyp ertension (chief complaint)OTH ER (chief complaint) Type 2 diabetes mellitus with hyperglycemia, without long-term current use of insulinEssential hypertensionMixed hyperlipidemiaScre ening, anemia, deficiency, ironObesity (BMI 30.0-34.9) Apr-0 1 [place] KAYLIN. [address], [place], [address], [place]. tel: [phone] OFFICE/OUTPA TIENT VISIT, [facility], [facility], [address] [place], [place], [id number] , [place] tel: [phone] 03 [facility] Medical Dizziness (chief complaint) DizzinessType 2 diabetes mellitus with hyperglycemia, without long-term current use of insulinDehydration after exertionEssential hypertension Sep- 0 Means Tal. [address], [id number] , [place]. tel: [phone] OFFICE/OUTPA TIENT VISIT, [facility], [facility], [facility] [address] [place], [place], [id number] , [place] tel: [phone] 03 [facility] Medical Follow Up of Physical (chief complaint) Essential hypertensionType 2 diabetes mellitus with hyperglycemia, without long-term current use of insulinMixed hyperlipidemia Jun- 0 Means Tal. [address], [id number] , [place]. tel: [phone] PREV VISIT, [facility], AGE 40-64 [facility], [facility], [address], [place], [id number] , [place] tel: [phone] 03 [facility] Medical Physical (chief complaint)LAB S (chief complaint) Routine history and physical examination of adultEssential hypertension 0 Means Tal. [address] [facility] [address], [place], [place], [id number] , [place]. tel: [phone] OFFICE/OUTPA TIENT VISIT, [facility], [facility], [facility] [address] [place], [place], [id number] , [place] tel: [phone] 03 [facility] Medical Follow Up of hypertension (chief complaint) Essential hypertension 9 Means Tal. [address] [address], [place], [place], [id number] , [place]. tel: [phone] OFFICE/OUTPA TIENT VISIT, [facility]3], [facility], [address], [place], [id number] , [place] tel: [phone] 03 [facility] Medical hypertension (chief complaint) Essential hypertension 1 9 Aline Parada. [address] [facility] [address], [place], [place], [id number] , [place]. tel: [phone] [facility]., [address], [place], [id number] , [place] tel: [phone] 03 [facility] Dental No Information 0 9 Ema- Gambian Kicha. [address], [place], [address], [place]. tel: [phone] [facility], [address], [place], [id number] , [place] tel: [phone] 03 [facility] Dental No Information 0 2 9 Ema- Gambian Kicha. [address], [place], [address], [place]. tel: [phone] Family History Family Member Type Diagnosis Age At Onset Brother Problem (finding) Diabetes Type II Mother Problem (finding) Diabetes Type II Father Problem (finding) Diabetes Type II Maternal Grandfather Problem (finding) Diabetes Type I I Sister Problem (finding) Mental Illness Brother Problem (finding) High blood pressure Maternal Grandmother Problem (finding) Diabetes Type I I Brother Problem (finding) High cholesterol Sister Problem (finding) Depression Sister Problem (finding) Diabetes Type II Payers Payer name Insurance type Covered democrat ID Authoriza tion(s) No Information Social History Type Description Quantity Date Captured Comments Alcohol Use Details Unknown Caffeine Use Details Unknown Tobacco Use Status No Information Smoking Status No Information Sex Male Chief Complaint And Reason For Visit No Information Reason For Referral Reason For Referral No Information Plan Of Treatment Date Type Action Status Goal ECG. Due on due Goal BMP. Due on due Goal ECG. Due on due Goal BMP. Due on due Patient Education Type 2 Diabetes: Care I nstructions completed Patient Education A Healthy Lifestyle: Ca re Instructions completed Patient Education A Healthy Lifestyle: Ca re Instructions completed Patient Education Learning About High Blo od Pressure completed History Of Present Illness Encounter Date Complaint History Of Prese nt Illness diabetes (comments) Patient here to follow up on hypertension. He reports that he has been out of his blood pressure medication for about 3.5 weeks. He reports that his blood pressures were lower at home when he was taking his medications but he has not been able to check it lately because the machine . He has been taking the metformin consistently because he had extra medication left over from before. OTHER PTS BP LEAVING A FTER 0.2 CLONIDINE 176/95 diabetes Patient here to follow up on hypertension. He reports that he has been out of his blood pressure medication for about 3.5 weeks. He reports that his blood pressures were lower at home when he was taking his medications but he has not been able to check it lately because the machine . He has been taking the metformin consistently because he had extra medication left over from before. hypertension Risk factors inc lude male gender. Additional information: pt states hes been out of bp meds for about 1 month Dizziness Onset was 1 week ago. The patient describes it as (an) floating and spinning. Symptom is aggravated by work. Associated symptoms include nausea. Pertinent negatives include chest pain, diplopia, ear drainage, fever, headache, hearing loss, incoordination, loss of consciousness, neck stiffness, otalgia, palpitations, paresthesia, seizures, slurred speech, tinnitus, vision loss, vomiting and weakness. Follow Up of Physical Men's prev entive visit. Marital status: . Concern(s)/Requests Detail: pt is here for labs results. Relevant history is positive for alcohol use. Physical Men's preventive visit. Marital status: . Concern(s)/Requests Detail: pt is here for physical and labs. Relevant history is positive for alcohol use. LABS pt needed lab wo rk done Follow Up of hypertension Risk f actors include male gender. Pertinent negatives include chest pain, claudication, confusion, diaphoresis, dyspnea, epistaxis, fatigue, headache, hematuria, irregular heartbeat/palpitations, nausea, tinnitus, transient weakness, tremor, visual disturbances and vomiting. Additional information: pt is here for 2 wk f/u hypertension Risk factors inc lude male gender. Pertinent negatives include chest pain, claudication, confusion, diaphoresis, dyspnea, epistaxis, fatigue, headache, hematuria, irregular heartbeat/palpitations, nausea, tinnitus, transient weakness, tremor, visual disturbances and vomiting. Functional Status Date Functional Assessmen t No Information Instructions Date Instruction Additional Infor mark 1. Medications sent to pharmacy2. Keep BP log and bring it with you to your next appointment 3. Follow up in 2 weeks or sooner as needed4. COVID-19 is a serious and potentially deadly respiratory illness. Mask wearing, social distancing and frequent hand washing is advised. Avoid social gatherings as much as possible and take precautions if unavoidable. Related to Type 2 diabetes mellitus with hyperglycemia, without long-term current use of insulin Drink 6 to 8 glasses of fluid every day. (This amount includes the water in foods and beverages.)Water is the best fluid for hydration because it has no calories, sugar, carbonation, or preservatives.Limit fruit juices, sodas, and fitness rodriguez as they contain sugars that can make you feel thirstier.Eat fruits and vegetables that are high in water, such as grapes, oranges, cantaloupe, honeydew, watermelon, apples, tomatoes, lettuce, cucumber and celery. (See the table below for other choices.)Avoid or limit coffee, tea, alcohol, and soda containing caffeine t hese increase urination, causing you to lose water at a faster than normal rate. Related to Dehydration after exertion should take 1500mg s odium a day but no more than 2400mg Related to Essential hypertension monitor BP at home, maintain a log and bring it in next appt Related to Essential hypertension aerobic exercise at least for 40 min, 3-4 times a week Related to Essential hypertension discuss normal range of BP Relat ed to Essential hypertension educated about risk of high BP including stroke, OR, chest pain, blurry vis Related to Essential hypertension recommend to go to E R if not feeling well Related to Essential hypertension take medication as prescribed Re lated to Essential hypertension educated to improve diet and physical activity Related to Type 2 diabetes mellitus with hyperglycemia, without long-term current use of insulin monitor BS at home, educated about sign and symptoms for hypoglycemia Related to Type 2 diabetes mellitus with hyperglycemia, without long-term current use of insulin monitor BS at home t wo times a day, maintain a log, bring it in next visit Related to Type 2 diabetes mellitus with hyperglycemia, without long-term current use of insulin Lifestyle interventi ons: Discussed various cholesterol lowering diets Related to Mixed hyperlipidemia Physical activity, 3 -4 sessions/week, 40 minutes/session Related to Mixed hyperlipidemia Weight control, avoi dance of tobacco products Related to Mixed hyperlipidemia Discussed risk factors Related t o Mixed hyperlipidemia Educated on signs an d symptoms of stroke Related to Mixed hyperlipidemia Please make sure to schedule a yearly Well Women's Exam. These yearly visits are a part of preventative healthcare. Some steps that can help you stay healthy include exercising often, eating right, maintaining healthy weight, limiting alcohol intake, and avoiding tobacco use. Vaccines are also recommended to help prevent diseases such as the flu and pneumonia. Screenings such as those that check for cancer, vision loss, and osteoporosis are also important. And lastly, keep an up-to-date list of all [id number] and prescribed medications. Take this list with you to all your healthcare provider appointments. Related to Routine history and physical examination of adult discuss normal range of BP Relat ed to Essential hypertension educated about risk of high BP including stroke, OR, chest pain, blurry vis Related to Essential hypertension recommend to go to E R if not feeling well Related to Essential hypertension take medication as prescribed Re lated to Essential hypertension should take 1500mg s odium a day but no more than 2400mg Related to Essential hypertension monitor BP at home, maintain a log and bring it in next appt Related to Essential hypertension aerobic exercise at least for 40 min, 3-4 times a week Related to Essential hypertension Implement Lifestyle Modifications including: Lower sodium (i.e. <2.3 grams per day) and alcohol intake (i.e. <2 drinks per day), keep weight in the ideal range (i.e. BMI <25), engage in regular aerobic exercise (i.e. at least 30 minutes per day on most days), and do not use tobacco products. Monitor your blood pressure at home (i.e. check once in the morning and once in the evening), record, and bring this information with you on your next clinic visit. Take all medications as prescribed and report any side effects. Call/return to clinic or seek Urgen Care if you experience the following symptoms: blurry vision or vision changes, headache, nausea, vomiting, confusion, passing out or seizures, weakness or numbness on one side of the body, difficulty walking, trouble breathing, chest pain, pain in the upper back between shoulders, urine that is brown or bloody, pain in the lower back or on the side of the body. Please keep all scheduled appointments. Related to Essential hypertension monitor BP at home, maintain a log and bring it in next appt Related to Essential hypertension aerobic exercise [place]olin[place] for 40 min, 3-4 times a week Related to Essential hypertension discuss normal range of BP Relat ed to Essential hypertension educated about risk of high BP including stroke, OR, chest pain, blurry vis Related to Essential hypertension recommend to go to E R if not feeling well Related to Essential hypertension take medication as prescribed Re lated to Essential hypertension should take 1500mg s odium a day but no more than 2400mg Related to Essential hypertension educated about risk of high BP including stroke, OR, chest pain, blurry vis Related to Essential hypertension recommend to go to E R if not feeling well Related to Essential hypertension take medication as prescribed Re lated to Essential hypertension should take 1500mg s odium a day but no more than 2400mg Related to Essential hypertension monitor BP at home, maintain a log and bring it in next appt Related to Essential hypertension aerobic exercise [facility] for 40 min, 3-4 times a week Related to Essential hypertension discuss normal range of BP Relat ed to Essential hypertension Assessments Type Assessment Date No Information Patient Care Teams Name Effective Dates (start - stop) Status Members No Information
--- OUTSIDE RECORDS SUMMARY | 2023-08-14 09:38 | XMS_ITS | Continuity of Care Document ---
Author Organization [facility] Address [address] [place] [address] Phone Care Team Providers Care Manager Cable Name Role Phone Damir Orellana MD Unavailable Unavailable Allergies, Adverse Reactions, Alerts Substance Reaction Status Criticality codeine Active No Information Medications Medication Instructions Dosage Effective Dates (start - stop) Status Comments clopidogrel 75 mg tablet take 1 tablet by oral route every day 75 MG - Active benzonatate 100 mg capsule take 1 capsule by oral route every day as needed for cough 100 MG - Active atorvastatin 40 mg tablet take 1 tablet by oral route every day 40 MG - Active Aleve 220 mg tablet take 1 tablet by ora l route every 12 hours as needed 220 MG - Active Ventolin HFA 90 mcg/actuation aerosol inhaler inhale 2 puff by inhalation route every 4 - 6 hours as needed 180 MCG - Active aspirin 81 mg tablet,delayed release take 1 tablet by oral route every day 81 MG - Active Procedures Procedure Date OFFICE/OUTPATIENT VISIT, EST EKG, Complete SUBSEQUENT HOSPITAL CARE NUC SCAN - MULTIPLE IMAGES ECHO W/DOPPLER, INTERPRETATION CARDIOVASCULAR STRESS TEST CARDIOVASCULAR STRESS TEST INITIAL HOSPITAL CONSULT Advance Directives Directive Yes / No Effective Date File Name No Information Encounters Encounter Description Practice Location Reason(s) For Visit Diagnoses Date Provider Providers Copied on Encounter [facility], [address], [place], [place], [id number], [place] tel:[phone] [facility] Main No Information 4 Reyna Reich. [address], [place], [place], [id number], [place]. tel:[phone] OFFICE/OUTPA TIENT VISIT, [facility], [facility] [address], [place], [place], [address], tel:[phone] [facility] Main [facility] (chief complaint) Cardiovasc ular Review (chief complaint) Body mass index [BMI] 27.0-27.9, adultHistory of [place] (myocardial infarction)MOSLEY (dyspnea on exertion)Curre nt smokerCurrent use of aspirin 3 Tish Gloria. [address], [place], [place], [id number]. tel:[phone] Referring Provider: Bryce Sahni, [facility] [facility] [address], [place], [address] . tel:[phone] [facility], [facility] [address] [address], [place], [place], [id number], [place] tel:[phone] [facility] [place] IP No Information 3 Fred Moya. [facility] [address], [place], [place], [id number], [place]. tel:[phone] Referring Provider: Edy Fisher, [address] [place] [address] [address], [place], [address]. tel:[phone] [facility], [facility] [address], [place], [place], [address], [place] tel:[phone] [facility] [place] IP No Information 3 Fred Moya. [facility] [facility] [address], [place], [place], [id number], . tel:[phone] Referring Provider: Edy Fisher, [address] [place] [address] [address], [place], [address]. tel:[phone] [facility], [address], [place], [place], [id number], [place] tel:[phone] [facility] [place] IP No Information 3 Fred Moya. [address], [place], [place], [id number], [place]. tel:[phone] Referring Provider: Edy Fisher, [address], [place], [address]. tel:[phone] [facility], [address], [place], [place], [address], [place] tel:[phone] [facility] [place] IP No Information 3 Med Miller. [address], [place], [place], [address], [place]. tel:[phone] Referring Provider: Bryce Sahni, [address], [place], [address] . tel:[phone] INITIAL HOSPITAL CONSULT [facility], [address], [place], [place], [id number], [place] tel:[phone] D[facility] S[facility] [place] IP No Information 3 Shayne Wu. [address], [place], [place], [address], [place]. tel:[phone] Referring Provider: Edy Fisher, [address], [place], [address]. tel:[phone] Family History Family Member Type Diagnosis Age At Onset Father Problem Stroke (Cause Of ) Mother Problem Pancreatitis (Cause Of ) 62 Payers Payer name Insurance type Covered republican ID Authordarryla joel(s) [facility] [id number] Social History Type Description Quantity Date Captured Comments Alcohol Use Details Unknown Caffeine Use Details Unknown Apr-24-2024 Tobacco Use Status Smoking Status No Information Sex Male Chief Complaint And Reason For Visit No Information Reason For Referral Reason For Referral No Information Plan Of Treatment Date Type Action Status Goal Dietary manageme nt education, guidance, and counseling completed Patient Education aspirin 81 mg tablet,de layed release completed History Of Present Illness Encounter Date Complaint History Of Prese nt Illness Cardiovascular Review He has had no chest discomfort suggestive of ischemia. The patient denies orthopnea, PND, MOSLEY, or edema. Mr. Ibarra has not had palpitations, syncope or near syncope. He denies claudication. There is no discoloration or ulceration of the lower extremities. He has had no TIA or stroke-like symptoms. [facility] PT HERE FOR F/U S/P HOSP FOR ATYPICAL CHEST PAIN, NEGATIVE ISCHEMIC WORK-UP. WAS DX W/ COPD, WILL BEING F/U W/ PULMONOLOGY. Functional Status Date Functional Assessmen t No Information Instructions Date Instruction Additional Infor mark Discussed Medication Compliance Dietary management e ducation, guidance, and counseling Related to Body mass index [BMI] 27.0-27.9, adult Assessments Type Assessment Date No Information Patient Care Teams Name Effective Dates (start - stop) Status Members No Information
--- OUTSIDE RECORDS SUMMARY | 2024-09-22 14:53 | XMS_ITS | Continuity of Care Document ---
Author Organization [facility] Address [address] [place] [address] Phone Care Team Providers Care Osha Inspector Name Role Phone Damir Orellana MD Unavailable [...] Providers Copied on Encounter [facility], [address], [place], [place], [id number], [place] tel:[phone] [facility] Main No Information 4 Reyna Reich. [address], [place], [place], [id number], [place]. tel:[phone] OFFICE/OUTPA TIENT VISIT, [facility], [facility] [address], [place], [place], [id number], tel:[phone] [facility] Main POST HOSP (chief complaint) Cardiovasc ular Review (chief complaint) Body mass index [BMI] 27.0-27.9, adultHistory of NE (myocardial infarction)[place]LEY (dyspnea on exertion)Curre nt smokerCurrent use of aspirin 3 Tish Gloria. [address], [place], [place], [id number]. tel:[phone] Referring Provider: Bryce Sahni, [facility] [facility] [address], [place], [address] . tel:[phone] [facility], [facility] [address] [address], [place], [place], [id number], [place] tel:[phone] [facility] [place] IP No Information 3 Fred Moya. [facility] [address], [place], [place], [id number], [place]. tel:[phone] Referring Provider: Edy Fisher, [address] [place] [address] [address], [place], [address]. tel:[phone] [facility], [facility] [address], [place], [place], [id number], [place] tel:[phone] [facility] [place] IP No Information 3 Fred Moya. [facility] [address], [place], [place], [address], . tel:[phone] Referring Provider: Edy Fisher, [address] [place] [address] [address], [place], [address]. tel:[phone] [facility], [address], [place], [place], [address], [place] tel:[phone] [facility]ario [facility] [place] IP No Information 3 Fred Moya. [address], [place], [id number], [place]. tel:[phone] Referring Provider: Edy Fisher, [address], [place], [address]. tel:[phone] [facility], [address], [place], [place], [id number], [place] tel:[phone] Dario Soha [place] IP No Information 3 Med Miller. [address], [place], [place], [address], [place]. tel:[phone] Referring Provider: Bryce Sahni, [address], [place], [address] . tel:[phone] INITIAL HOSPITAL CONSULT [facility], [address], [place], [place], [id number], [place] tel:[phone] Dario Soha [place] IP No Information 3 Shayne Wu. [address], [place], [place], [address], [place]. tel:[phone] Referring Provider: Edy Fisher, [address], [place], [address]. tel:[phone] Family History Family Member Type Diagnosis Age At Onset Father Problem Stroke (Cause Of ) Mother Problem Pancreatitis (Cause Of ) 62 Payers Payer name Insurance type Covered democrat ID Authordarryla joel(s) [facility] [id number] Social History Type Description Quantity Date Captured [...]
[2024-09-28 14:59] VITALS: BMI 26.7
[2024-10-21 09:49] VITALS: BMI 26.3
[2024-10-21 09:52] VITALS: BP 133/78; PULSE 53; RESP 16; O2SAT 97
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
[2024-10-21 11:03] LABS: Hematocrit 44.9 % (42.0-52.0); Hemoglobin 15.0 g/dl (14.0-18.0); Mean Corpuscular HGB Conc 33.4 g/dl (31.0-36.0); Mean Corpuscular Hemoglobin 29.2 pg (27.0-33.0); Mean Corpuscular Volume 87.4 fL (80.0-98.0); NRBC Abs Auto 0.000 X10*3/uL (0.0-0.012); NRBC Pct Auto 0.0 /100WBC (0.0-0.2); Platelet Count 182 X10*3/uL (160-400); Red Blood Count 5.14 X10*6/uL (4.60-5.80); White Blood Count 5.6 X10*3/uL (4.8-10.8)
[2024-10-21 11:08] LABS: Hemoglobin A1C 178.6058 umol/L; Total Hemoglobin (HGBA1C) 3965.7050 umol/L
[2024-10-21 11:30] LABS: Anion Gap 10 (12-20); Blood Urea Nitrogen 21 mg/dL (9-16); Calcium 9.6 mg/dL (8.4-10.2); Carbon Dioxide 30 mmol/L (22-29); Chloride 105 mmol/L (96-108); Creatinine Clr Calc Pharmacy 68.3; Estimated Glomerular Filt Rate > 60; Potassium 4.2 mmol/L (3.3-5.1); Sodium 141 mmol/L (135-145)
--- OUTSIDE RECORDS SUMMARY | 2024-12-23 11:05 | XMS_ITS | Clinical Summary ---
Author Organization [facility], Address [address] [place] [address] [place] [address] Phone Care Team Providers Care Canal Tender Name Role Phone Taylor Desouza NP Primary [...] mouth 1 (one) time each day Active metoprolol succinate XL (TOPROL XL) 50 [...] 3 05/14/19 25 Active ergocalciferol 1.25 MG (59389 UT) capsuleIndicati ons:Hypertensiv e heart AND chronic kidney disease stage 3 (HCC),Stage 3a chronic kidney disease (HCC),Type 2 diabetes mellitus with diabetic nephropathy (HCC),Persisten t proteinuria TAKE 1 CAPSULE (50,000 UNITS TOTAL) BY MOUTH ONCE WEEKLY 12 capsule 07/11/19 25 Active fenofibrate (TRICOR) 145 MG tablet TAKE 1 TABLET BY MOUTH EVERY DAY 90 tablet 3 12/11/19 25 Active fenofibrate (TRICOR) 145 MG tablet TAKE 1 TABLET BY MOUTH EVERY DAY 90 tablet 3 10/29/19 24 025 Discontinued Active Problems Problem Noted Date Diagnosed Date Proteinuria 08/23/2020 Hypertensive heart AND chronic kidney disease st age 3 02/24/2020 Stage 3a chronic kidney disease 08/12/2019 Overview (04/25/2020): Update for Diagnosis Load Essential hypertension Hyperlipidemia Resolved Problems Problem Noted Date Diagnosed Date Resolved Date Type 2 diabetes mellitus 08/23/2020 Encounters Date Type Department Care Team Description 12/10/2024 Refill [facility] [address] [place] [address] Zaheer Nicolas DO 10/20/2024 Orders Only [facility] [address] [place] [address] Ever Bow[place] Stage 3a chronic kidney disease (HCC) (Primary Dx); 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); Persistent proteinuria 10/16/2024 1:30 PM EDT Office Visit [facility] [address] [place] [address] Zaheer Nicolas DO Stage 3a chronic kidney disease (HCC) (Primary Dx); 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); Persistent proteinuria from Last 3 Months [...] Sign Reading Time Taken Comments Blood Pressure 118/74 10/16/2024 1:46 PM EDT Pulse 70 10/16/2024 1:46 PM EDT Temperature - - Respiratory Rate - - Oxygen Saturation - - Inhaled Oxygen Concentration - - Weight 85.3 kg (188 lb) 03/02/2022 2:12 PM EST Height 172.7 cm (5' 8 ) 09/25/2018 12:00 PM EDT Body Mass Index 28.59 09/25/2018 12:00 PM EDT Plan of Treatment Upcoming Encounters Date Type Department Care Team (Late st Contact Info) Description 05/07/2025 1:30 PM EST Office Visit [facility], [address] [place] [id number] Zaheer Nicolas DO [address] [place] [address] Health Maintenance Due Date Last Done [...] 04/30/2023, 09/06/2022, Additional history exists Influenza Vaccine (#1) 2024 4, 03/02/2022, 01/23/2020, Additional history exists Pneumococcal Vaccine: Peds (0 to 5 Years) and At-Risk Patients (6 to 49 Years) Discontinued 12/15/2014 Hepatitis B Vaccine Aged Out No longe r eligible based on patient's age to complete this topic Procedures Procedure Name Priority Date/Time Associated Diagnosis Comments HEMOGLOBIN A1C Routine 10/30/2023 7:51 AM EDT from Last 3 Months or Most Recently Relevant to Health Maintenance Results * (ABNORMAL) Hemoglobin A1c (10/30/2023 7:51 AM EDT) Hemoglobin A1C 6.7(H) 4.8 - 5.6 % [facility] Comment: Prediabetes: 5.7 - 6.4 Diabetes: >6.4 Glycemic control for adults with diabetes: <7.0 10/30/2023 7:51 AM EDT 10/30/2023 us Zaheer Nicolas DO LAB BLOOD ORDERABLES Final [facility]u lt [facility] [place] [address] [place] [phone] from Last 3 Months or Most Recently Relevant to Health Maintenance Insurance [employer] Dual SNP ([id number]) [place] [id number] Care Teams Canal Tender Relationship Specialty Start Date End Date Taylor Desouza NP [address] [place] [phone] PCP - General Nurse Practitioner 08/12/20
--- OUTSIDE RECORDS SUMMARY | 2024-12-23 11:05 | XMS_ITS | Encounter Summary ---
Author Organization [facility] Address [address] [place] [address] Phone Care Team Providers Care Labor Expediter Name Role Phone Taylor Desouza GUI DEVELOPER Primary Care Provider + Encounter Details Date Type Department Care Team (Late st Contact Info) Description 09/03/2022 Documentation Only [facility] [address] [place] [address] Pedro Malagon MD [address] [place] [address] Social History Tobacco Use Types [...] Visit [facility] [address] [place] [address] Zaheer Nicolas DO [address] [place] [address] documented as of this encounter Visit Diagnoses Not on filedocumented in this encounter Care Teams Labor Expediter Relationship Specialty Start Date End Date Taylor Desouza NP [address] [place] [phone] PCP - General Nurse Practitioner 08/12/20 documented as of this encounter
--- OUTSIDE RECORDS SUMMARY | 2024-12-23 11:05 | XMS_ITS | Encounter Summary ---
Author Organization [facility] Address [address] [place] [address] Phone Care Team Providers Care Web Retailer Name Role Phone Taylor Desouza NP Primary Care Provider + Reason for Visit * Reason Comments Med Refill Encounter Details Date Type Department Care Team (Late st Contact Info) Description 06/08/2022 Refill [facility] [address] [place] [place] [address] Zaheer Nicolas DO [address] [place] [address] Social History Tobacco Use Types [...] Visit [facility] [address] [place] [address] Zaheer Nicolas DO [address] [place] [address] documented as of this encounter Visit Diagnoses Not on filedocumented in this encounter Care Teams Web Retailer Relationship Specialty Start Date End Date Taylor Desouza NP [address] [place] [phone] PCP - General Nurse Practitioner 08/12/20 documented as of this encounter
--- OUTSIDE RECORDS SUMMARY | 2024-12-23 11:05 | XMS_ITS | Encounter Summary ---
Author Organization [facility] Address [address] [place] [address] Phone Care Team Providers Care Business Unit Leader Name Role Phone Taylor Desouza SEO COORDINATOR Primary Care Provider + Encounter Details Date Type Department Care Team (Late st Contact Info) Description 09/03/2022 Documentation Only [facility] [address] [place] [address] Zaheer Nicolas DO [address] [place] [address] Social History Tobacco Use Types [...] Visit [facility] [address] [place] [address] Zaheer Nicolas DO [address] [place] [address] documented as of this encounter Visit Diagnoses Not on filedocumented in this encounter Care Teams Business Unit Leader Relationship Specialty Start Date End Date Taylor Desouza NP [address] [place] [phone] PCP - General Nurse Practitioner 08/12/20 documented as of this encounter
--- OUTSIDE RECORDS SUMMARY | 2024-12-23 11:06 | XMS_ITS | Encounter Summary ---
Author Organization [facility] Address [address] [place] [address] Phone Care Team Providers Care Whiting Machine Operator Name Role Phone Taylor Desouza LAND CLASSIFIER Primary Care Provider + Reason for Visit * Reason Comments Med Refill Encounter Details Date Type Department Care Team (Late st Contact Info) Description 12/28/2020 [facility]ill [facility] [address] [place] [address] Zaheer Nicolas, [address] [address] [place] [address] Social History Tobacco Use Types [...] Visit [facility] [address] [place] [address] Zaheer Nicolas DO [address] [facility] [place] [address] documented as of this encounter Visit Diagnoses Not on filedocumented in this encounter Care Teams Whiting Machine Operator Relationship Specialty Start Date End Date Taylor Desouza NP [address] [place] [phone] PCP - General Nurse Practitioner 08/12/20 documented as of this encounter
--- OUTSIDE RECORDS SUMMARY | 2024-12-23 11:06 | XMS_ITS | Encounter Summary ---
Author Organization [facility] Address [address] [place] [address] Phone Care Team Providers Care Stamping Mill Tender Name Role Phone Taylor Desouza MOLD YARD CRANE OPERATOR Primary Care Provider + Encounter Details Date Type Department Care Team (Late st Contact Info) Description 11/14/2022 Documentation Only [facility] [address] [place] [address] Zaheer Nicolas DO [address] [place] [address] Social History Tobacco Use Types [...] Visit [facility] [address] [place] [address] Zaheer Nicolas DO [address] [facility] [place] [address] documented as of this encounter Visit Diagnoses Not on filedocumented in this encounter Care Teams Stamping Mill Tender Relationship Specialty Start Date End Date Taylor Desouza NP [address] [place] [phone] PCP - General Nurse Practitioner 08/12/20 documented as of this encounter
--- OUTSIDE RECORDS SUMMARY | 2024-12-23 11:06 | XMS_ITS | Clinical Summary ---
Author Organization [facility] Address [address] [place] [address] Phone Care Team Providers Care Inside Steward/Stewardess Name Role Phone Taylor Desouza NP Primary Care Provider [phone] Allergies Active Allergy Reactions Criticality Noted Date [...] 50 04/04/2024 2:54 PM EST Temperature 36.3 C (97.4 F) 04/04/2024 2:54 PM EST Respiratory Rate 16 04/04/2024 2:54 PM EST [...] Zoster Vaccines (2 of 2) 05/15/2018 03/20/2018 Hepatitis B Vaccines (1 of 3 - Risk 3-dose series) 2024 RSV Immunization Adult Patients (1 - Risk 60-74 years 1-dose series) 2024 Cholesterol Screening (Lipid Panel) 04/04/2024 Colorectal Cancer Screening: Colonoscopy 04/04/2024 Diabetes: Annual Urine Albumin-Creatinine Ratio (uACR) 04/04/2024 HIV Screening 04/04/2024 Hepatitis C Screening 04/04/2024 Hypertension/CHF/CAD Annual BMP Blood Test 04/04/2024 Social Influencers of Health Screening 04/04/2024 Depression Screening 04/22/2024 Diabetes: Blood Sugar Control Test (HGBA1C) 05/01/2024 10/30/2023, 10/30/2023 COVID-19 Vaccine ( season) 2024 01/25/2023, 08/09/2021, 03/24/2021, Additional history exists Influenza Vaccine (#1) 2024 , 01/14/2023, 03/02/2022, Additional history exists DTaP,Tdap,and Td Vaccines (3 - Td or Tdap) 05/13/2031 05/13/2021, 06/07/2010 HIB Vaccines Aged Out No longer eligi [...] this topic Insurance [employer] Care Teams Inside Steward/Stewardess Relationship Specialty Start Date End Date Taylor Desouza NP [address] [address] PCP - General Nurse Practitioner 04/04/24
--- OUTSIDE RECORDS SUMMARY | 2024-12-23 11:06 | XMS_ITS | Encounter Summary ---
Author Organization [facility] Address [address] [place] [address] Phone Care Team Providers Care Canvas Cutter Machine Name Role Phone Taylor Desouza TOY ASSEMBLER WOOD Primary Care Provider + Encounter Details Date Type Department Care Team (Late st Contact Info) Description 10/13/2023 Documentation Only [facility] [address] [place] [address] Zaheer Nicolas DO [address] [facility] [place] [address] Social History Tobacco Use Types [...] [facility] [address] [place] [address] Zaheer Nicolas DO [address] [facility] [place] [address] documented as of this encounter Visit Diagnoses Not on filedocumented in this encounter Care Teams Canvas Cutter Machine Relationship Specialty Start Date End Date Taylor Desouza NP [address] [place] [phone] PCP - General Nurse Practitioner 08/12/20 documented as of this encounter
--- OUTSIDE RECORDS SUMMARY | 2024-12-23 11:06 | XMS_ITS | Encounter Summary ---
Author Organization [facility] Address [address] [place] [address] Phone Care Team Providers Care Commercial Agent Name Role Phone Taylor Desouza CHILDRENS CLUB ATTENDANT Primary Care Provider + Encounter Details Date Type Department Care Team (Late st Contact Info) Description 04/18/2023 Documentation Only [facility] [address] [place] [place] [address] Zaheer Nicolas DO [address] [facility] [place] [address] Social History Tobacco Use Types [...] Visit [facility] [address] [place] [address] Zaheer Nicolas DO [address] [facility] [place] [address] documented as of this encounter Visit Diagnoses Not on filedocumented in this encounter Care Teams Commercial Agent Relationship Specialty Start Date End Date Taylor Desouza NP [address] [place] [phone] PCP - General Nurse Practitioner 08/12/20 documented as of this encounter
== END 2024-10-21 00:01 | disposition home or self-care (01) ==
LOC: HO.PAT
PROVIDERS: Nurse Practitioner; PCP Nurse Practitioner Family; Visit Provider Orthopaedic Surgery
DX: Z01.818 Encounter for other preprocedural examination (principal)
CPT/HCPCS: 36415; 80048; 83036; 85027